=== PATIENT | male | born 1985 | race American Indian/Alaskan Native ===

== ENCOUNTER 2017-09-24 21:15 | Observation (INO) | payer SELFPAY ==
[2017-09-24] MEDS ORDERED: Sodium Chloride 0.9% 1,000 ML IV STA (21:34)
[2017-09-24] MEDS ORDERED: Iohexol 350 MG/100 ML VIAL ONE (22:11)
[2017-09-24 22:24] LABS: ALB/GLOB RATIO 1.3 (1.1-1.8); ALBUMIN 4.7 g/dL (3.0-4.8); ALT/SGPT 113 U/L (7-56); AST/SGOT 73 U/L (17-59); BLOOD UREA NITROGEN 10 mg/dL (7-21); CALCIUM 10.3 mg/dL (8.4-10.5); GFR AFRICAN-AMERICAN > 60; GFR NON-AFRICAN AMERICAN 51; LIPASE 43 U/L (23-300)
[2017-09-24 22:40] LABS: HEMOGLOBIN 16.5 g/dL (14.0-18.0); MEAN CELL VOLUME 76.5 fl (80.0-105.0); MEAN CORPUSCULAR HEMOGLOBIN 25.5 pg (25.0-35.0); MEAN CORPUSCULAR HGB CONC 33.4 g/dl (31.0-37.0); RBC 6.46 10^6/uL (3.5-6.1); RED CELL DISTRIBUTION WIDTH 15.6 % (11.5-14.5); WHITE BLOOD COUNT 10.4 10^3/ul (4.5-11.0)
[2017-09-24] MEDS ORDERED: Sodium Chloride 0.9% 1,000 ML IV SCH (22:45)
--- NOTE | 2017-09-24 22:51 | ED PDOC ---
Arrival/HPI - General Chief Complaint: GI Problem Time Seen by Provider: 09/24/17 21:24 Historian: Patient - History of Present Illness Narrative History of Present Illness (Text): 09/24/17 22:48 32 year old male, whose past medical history includes seizures as a child, who presents to the emergency department complaining multiple episodes of vomiting and diarrhea this evening. Patient notes he was at a [employer], when he began sweating and experiencing severe abdominal pain. Patient notes he then experienced uncontrollable diarrhea. Patient states he last ate a hamburger 5-6 hours prior to onset of symptoms. Patient denies any fever, chills , chest pain, shortness of breath, urinary symptoms, back pain, neck pain, headache, dizziness, or any other complaints. Time/Duration: Prior to Arrival Symptom Onset: Sudden Symptom Course: Unchanged Activities at Onset: Light Past Medical History - Provider Review Nursing Documentation Reviewed: Yes - Infectious Disease Hx of Infectious Diseases: None - Psychiatric Hx Substance Use: No - Anesthesia Hx Anesthesia: No Hx Anesthesia Reactions: No Hx Malignant Hyperthermia: No Family/Social History - Physician Review Nursing Documentation Reviewed: Yes Family/Social History: Unknown Family HX Smoking Status: Never Smoked Hx Alcohol Use: No Hx Substance Use: No Allergies/Home Meds Allergies/Adverse Reactions: Allergies No Known Allergies Allergy (Verified 09/24/17 21:26) Home Medications: Home Meds Medication Instructions Recorded Confirmed No Known Home Med 09/24/17 09/24/17 Review of Systems - Physician Review All systems were reviewed & negative as marked: Yes - Review of Systems Constitutional: Normal Eyes: Normal ENT: Normal Respiratory: Normal. absent: SOB, Cough Cardiovascular: Normal. absent: Chest Pain Gastrointestinal: Abdominal Pain, Diarrhea, Vomiting Genitourinary Male: Normal. absent: Dysuria, Frequency Musculoskeletal: Normal. absent: Back Pain, Neck Pain Skin: Normal. absent: Rash Neurological: Normal. absent: Headache, Dizziness Endocrine: Normal Hemo/Lymphatic: Normal Psychiatric: Normal Physical Exam Vital Signs Reviewed: Yes Vital Signs Temp Pulse Resp BP Pulse Ox 09/24/17 21:28 98.2 F 91 H 18 153/91 H 98 Temperature: Afebrile Blood Pressure: Normal Pulse: Regular Respiratory Rate: Normal Appearance: Positive for: Well-Appearing, Non-Toxic, Comfortable Pain Distress: None Mental Status: Positive for: Alert and Oriented X 3 - Systems Exam Head: Present: Atraumatic, Normocephalic Pupils: Present: PERRL Extroacular Muscles: Present: EOMI Conjunctiva: Present: Other (nacteric) Mouth: Present: Dry Neck: Present: Normal Range of Motion Respiratory/Chest: Present: Clear to Auscultation, Good Air Exchange. No: Respiratory Distress, Accessory Muscle Use Cardiovascular: Present: Regular Rate and Rhythm, Normal S1, S2. No: Murmurs Abdomen: Present: Tenderness (mild diffuse tenderness). No: Distention, Normal Bowel Sounds (increased bowel sounds), Peritoneal Signs, Rebound, Guarding Back: Present: Normal Inspection Upper Extremity: Present: Normal Inspection. No: Cyanosis, Edema Lower Extremity: Present: Normal Inspection. No: Edema Neurological: Present: GCS=15, CN II-XII Intact, Speech Normal Skin: Present: Warm, Dry, Normal Color. No: Rashes Psychiatric: Present: Alert, Oriented x 3, Normal Insight, Normal Concentration Medical Decision Making ED Course and Treatment: 09/24/17 22:53 Impression: 32 year old male presents to the emergency department complaining of multiple episodes of vomiting and diarrhea this evening. Plan: -- CT Abd/Pelvis -- EKG -- Pepcid -- Sodium Chloride -- Toradol -- Zofran -- Reassess and disposition Progress Notes: 09/25/17 00:05 CT abd/pelvis reviewed, shows: Lung bases: Unremarkable. No mass. No consolidation. ABDOMEN: Liver: Unremarkable. No mass. Gallbladder and bile ducts: Unremarkable. No calcified stones. No ductal dilation. Pancreas: Unremarkable. No mass. No ductal dilation. Spleen: Unremarkable. No splenomegaly. Adrenals: Unremarkable. No mass. Kidneys and ureters: Unremarkable. No solid mass. No hydronephrosis. Stomach and bowel: Mild thickening of the colon. however , distended. In appropriate clinical setting mild colitis is not excluded. PELVIS: Appendix: No findings to suggest acute appendicitis. Bladder: Unremarkable. No mass. Reproductive: Unremarkable as visualized. ABDOMEN and PELVIS: Intraperitoneal space: Unremarkable. No free air. No significant fluid collection. Bones/joints: No acute fracture. No dislocation. Soft tissues: Unremarkable. Vasculature: Unremarkable. No abdominal aortic aneurysm. Lymph nodes: Unremarkable. No enlarged lymph nodes. IMPRESSION: Mild thickening of the colon. however , distended. In appropriate clinical setting mild colitis is not excluded. 09/25/17 00:10 EKG reviewed, shows NSR at 100 bpm. Non-specific T wave changes 09/25/17 00:20 Case discussed with program medical director and Dr. More. Accepts pt to hospital service. - Lab Interpretations Lab Results: 09/24/17 22:00 09/24/17 22:00 Lab Results 09/24/17 22:00: WBC 10.4, RBC 6.46 H, Hgb 16.5, Hct 49.4, MCV 76.5 L, MCH 25.5, MCHC 33.4, RDW 15.6 H, Plt Count 327, MPV 11.0 09/24/17 22:00: Sodium 143, Potassium 4.3, Chloride 102, Carbon Dioxide 25, Anion Gap 21 H, BUN 10, Creatinine 1.6 H, Est GFR ( Amer) > 60, Est GFR ( Non-Af Amer) 51, Random Glucose 107, Calcium 10.3, Total Bilirubin 0.7, AST 73 H , ALT 113 H, Alkaline Phosphatase 47, Total Protein 8.2, Albumin 4.7, Globulin 3.5, Albumin/Globulin Ratio 1.3, Lipase 43 - RAD Interpretation Radiology Orders: 09/24/17 21:33 ABD & PELVIS IV CONTRAST ONLY [CT] Stat - Medication Orders Current Medication Orders: Sodium Chloride (Sodium Chloride 0.9%) 1,000 mls @ 150 mls/hr IV .Q6H40M YADIRA Metronidazole (Flagyl) 500 mg in 100 mls @ 100 mls/hr IVPB STAT STA PRN Reason: Protocol Stop: 09/25/17 01:12 Ceftriaxone Sodium (Rocephin 1 Gram Ivpb) 1 gm in 100 mls @ 200 mls/hr IV ONCE STA PRN Reason: Protocol Stop: 09/25/17 00:42 Discontinued Medications Famotidine (Pepcid) 20 mg IVP STAT STA Stop: 09/24/17 21:35 Last Admin: 09/24/17 22:03 Dose: 20 mg IVP Administration Document 09/24/17 22:03 CNR (Rec: 09/24/17 22:03 CNR [id number]) Charges for Administration # of IVP Administrations 1 Sodium Chloride (Sodium Chloride 0.9%) 1,000 mls @ 999 mls/hr IV .Q1H1M STA Stop: 09/24/17 22:34 Last Admin: 09/24/17 22:02 Dose: 999 mls/hr eMAR Start Stop Document 09/24/17 22:02 CNR (Rec: 09/24/17 22:02 CNR [id number]) Intravenous Solution Start Date 09/24/17 Start Time 22:02 End Date 09/24/17 End time 23:02 Total Infusion Time 60 Ketorolac Tromethamine (Toradol) 30 mg IVP ONCE ONE Stop: 09/24/17 21:35 Last Admin: 09/24/17 22:03 Dose: 30 mg MAR Pain Assessment Document 09/24/17 22:03 CNR (Rec: 09/24/17 22:03 CNR [id number]) Pain Reassessment Is this a pain reassessment? No IVP Administration Document 09/24/17 22:03 CNR (Rec: 09/24/17 22:03 CNR [id number]) Charges for Administration # of IVP Administrations 1 Ondansetron HCl (Zofran Inj) 4 mg IVP ONCE ONE Stop: 09/24/17 21:35 Last Admin: 09/24/17 22:03 Dose: 4 mg IVP Administration Document 09/24/17 22:03 CNR (Rec: 09/24/17 22:03 CNR [id number]) Charges for Administration # of IVP Administrations 1 - Scribe Statement The provider has reviewed the documentation as recorded by the Anaibdory Chiu All medical record entries made by the Drew were at my direction and personally dictated by me. I have reviewed the chart and agree that the record accurately reflects my personal performance of the history, physical exam, medical decision making, and the department course for this patient. I have also personally directed, reviewed, and agree with the discharge instructions and disposition. Disposition/Present on Arrival - Present on Arrival Any Indicators Present on Arrival: No History of DVT/PE: No History of Uncontrolled Diabetes: No Urinary Catheter: No History of Decub. Ulcer: No History Surgical Site Infection Following: None - Disposition Have Diagnosis and Disposition been Completed?: Yes Diagnosis: Colitis, Intractable nausea and vomiting, Diarrhea Disposition: HOSPITALIZED Disposition Time: 00:19 Patient Problems: Current Active Problems Problem Status Onset Colitis Acute Diarrhea Acute Intractable nausea and vomiting Acute Condition: STABLE Forms: [employer] ([place])
[2017-09-25] MEDS ORDERED: cefTRIAXone 1 gm 1 GM/100 ML BAG IV STA (00:13)
[2017-09-25] MEDS ORDERED: metroNIDAZOLE IV 500 mg/100 ml 500 MG/100 ML BAG IVPB STA (00:13)
[2017-09-25 01:10] VITALS: RESP 20
[2017-09-25] MEDS: Sodium Chloride 0.9% 1,000 ML IV SCH ×4 (01:30→17:31)
--- NOTE | 2017-09-25 01:36 | CP.PCM.HP ---
<Pankaj Samuel - Last Filed: 09/25/17 01:33> History of Present Illness - History of Present Illness History of Present Illness: Pankaj Samuel PGY 2 IM H&P Note for Dr. Cancino CC: Abdominal pain with nausea/vomiting Mr. Mitchell is a 32-year-old -[place]aysian male with a PMH of morbid obesity and seizures (last was at age 23, per patient) who presents with abdominal pain and 3 episodes of nausea/vomiting that started earlier today. The patient states that his breakfast included gottlieb, which may have been undercooked, and lunch was a burger (meat may have been old). The patient states that earlier tonight, around 8 PM, he started experiencing nausea, a feeling of abdominal "churning" and began having nonbloody vomiting and uncontrollable diarrhea. The patient does state that he noted streaks of blood the patient denies fevers/chills, chest pain, weakness, headaches, dizziness, sick contacts, or other contacts with similar symptoms. The patient denies any similar prior episodes. Of note, the patient has not followed up with the PMD in over 2 years. 12 point ROS was reviewed and is otherwise unremarkable. In ED, the patient was given 1 L NS bolus and started on 150 cc/h for maintenance. He was also given Zofran, Pepcid and Toradol, as well as Rocephin and Flagyl. EKG was done and noted NSR at 100 bpm with nonspecific T-wave changes. CT abdomen/pelvis was also done and showed mild thickening of the colon likely indicating mild colitis. PMH: As above PSH: Partial right knee repair Meds: None Allergies: None SHX: Positive social EtOH, denies tobacco or drug use F Hx: Diabetes and cancer Present on Admission - Present on Admission Any Indicators Present on Admission: No Review of Systems - Review of Systems All systems: reviewed and no additional remarkable complaints except (as per HPI ) Past Patient History - Infectious Disease Hx of Infectious Diseases: None - Past Medical History & Family History Past Medical History?: Yes Past Family History: Reviewed and not pertinent - Past Social History Smoking Status: Never Smoked Alcohol: None Drugs: Denies Home Situation {Lives}: With Family - CARDIAC Hx Cardiac Disorders: No - PULMONARY Hx Respiratory Disorders: No - NEUROLOGICAL Hx Seizures: Yes - HEENT Hx HEENT Problems: No - RENAL Hx Chronic Kidney Disease: No - ENDOCRINE/METABOLIC Hx Endocrine Disorders: No - HEMATOLOGICAL/ONCOLOGICAL Hx Blood Disorders: No - INTEGUMENTARY Hx Dermatological Problems: No - MUSCULOSKELETAL/RHEUMATOLOGICAL Hx Musculoskeletal Disorders: No - GASTROINTESTINAL Hx Gastrointestinal Disorders: No - GENITOURINARY/GYNECOLOGICAL Hx Genitourinary Disorders: No - PSYCHIATRIC Hx Psychophysiologic Disorder: No Hx Substance Use: No - SURGICAL HISTORY Hx Surgeries: Yes Hx Orthopedic Surgery: Yes (partial right knee repair) - ANESTHESIA Hx Anesthesia: No Hx Anesthesia Reactions: No Hx Malignant Hyperthermia: No Meds Allergies/Adverse Reactions: Allergies Allergy/AdvReac Type Severity Reaction Status Date / Time No Known Allergies Allergy Verified 09/24/17 21:26 Physical Exam - Constitutional Appears: Well, Non-toxic, No Acute Distress - Head Exam Head Exam: NORMAL INSPECTION - Eye Exam Eye Exam: EOMI, Normal appearance - ENT Exam ENT Exam: Mucous Membranes Moist - Neck Exam Neck exam: Positive for: Normal Inspection - Respiratory Exam Respiratory Exam: Clear to Auscultation Bilateral, NORMAL BREATHING PATTERN. absent: Rales, Rhonchi, Wheezes, Respiratory Distress - Cardiovascular Exam Cardiovascular Exam: Tachycardia, +S1, +S2. absent: Systolic Murmur - GI/Abdominal Exam GI & Abdominal Exam: Guarding, Normal Bowel Sounds, Soft, Tenderness (RUQ on deep palpation). absent: Distended, Rigid - Extremities Exam Extremities exam: Positive for: normal inspection - Back Exam Back exam: NORMAL INSPECTION - Neurological Exam Neurological exam: Alert, Oriented x3 - Psychiatric Exam Psychiatric exam: Normal Mood - Skin Skin Exam: Normal Color, Warm Results - Vital Signs Recent Vital Signs: Last Vital Signs Temp 98.6 F 09/25/17 00:33 Pulse 104 H 09/25/17 01:09 Resp 20 09/25/17 01:09 BP 138/69 09/25/17 01:09 Pulse Ox 99 09/25/17 01:09 - Labs Result Diagrams: 09/24/17 22:00 09/24/17 22:00 Assessment & Plan - Assessment and Plan (Free Text) Assessment: 32-year-old -Malaysian male with a PMH of morbid obesity and a remote history of seizures who presents with abdominal pain associated with nausea/ vomiting 1 day. Imaging significant for mild colitis, and patient is improving with current therapy. Plan: 1. Nausea/vomiting likely 2/2 colitis - Start Cipro and Flagyl for empiric therapy - NPO due to vomiting, advance diet as tolerated - NS at 175 cc/h for maintenance - Zofran as needed - Blood and stool cultures ordered - Stool electrolytes ordered - Salmonella AB ordered - Abd US ordered - Tylenol as needed fevers - We will admit for observation on MedSurg 2. COLTEN - Unknown of baseline creatinine - Monitor urine output - AM labs to check BUN/Cr 3. PPX - PTX - Ambulatory Case was reviewed and discussed with attending, Dr. Cancino <Gregor Cancino - Last Filed: 09/25/17 04:36> Results - Vital Signs Recent Vital Signs: Last Vital Signs Temp 98.9 F 09/25/17 01:33 Pulse 86 09/25/17 01:33 Resp 20 09/25/17 01:33 BP 143/71 09/25/17 01:33 Pulse Ox 99 09/25/17 01:09 - Labs Result Diagrams: 09/24/17 22:00 09/24/17 22:00 Attending/Attestation - Attestation I have personally seen and examined this patient.: Yes I have fully participated in the care of the patient.: Yes I have reviewed all pertinent clinical information: Yes Notes (Text): 09/25/17 04:34 Patient was seen when he was in 570-02. Agree with history, physical examination, assessment and plan. C/o right sided abdominal pain nausea ,vomiting diarrhoea with blood in stool. Colitis. Obesity. History of GERD History of migraine headache. [place] History knee repair. Family history breast cancer-Aunt. Family history of prostate cancer-Uncle. Family history of DM-Mother. Family history of bone cancer-Grand mother. Family history of epilepsy -Uncle.
[2017-09-25 02:06] VITALS: BMI 41.5
[2017-09-25] MEDS: metroNIDAZOLE IV 500 mg/100 ml 500 MG/100 ML BAG IVPB SCH ×3 (06:33→21:12)
[2017-09-25] MEDS: Pantoprazole 40 mg EC Tab PO SCH (06:33)
[2017-09-25 07:03] LABS: BASO # 0.03 K/mm3 (0.0-2.0); BASO % 0.3 % (0.0-3.0); EOS % 0.3 % (1.5-5.0); GRAN # 6.73 (1.4-6.5); GRAN % 74.8 % (50.0-68.0); HEMOGLOBIN 14.9 g/dL (14.0-18.0); LYMPH # 1.4 (1.2-3.4); LYMPH % 15.6 % (22.0-35.0); MEAN CELL VOLUME 76.5 fl (80.0-105.0); MEAN CORPUSCULAR HEMOGLOBIN 25.3 pg (25.0-35.0); MEAN CORPUSCULAR HGB CONC 33.1 g/dl (31.0-37.0); MEAN PLATELET VOLUME 10.4 fl (7.0-11.0); MONO # 0.8 (0.1-0.6); RBC 5.88 10^6/uL (3.5-6.1); RED CELL DISTRIBUTION WIDTH 15.7 % (11.5-14.5)
[2017-09-25 07:40] LABS: ALB/GLOB RATIO 1.3 (1.1-1.8); ALBUMIN 3.8 g/dL (3.0-4.8); ALT/SGPT 95 U/L (7-56); AST/SGOT 56 U/L (17-59); BLOOD UREA NITROGEN 12 mg/dL (7-21); CALCIUM 8.8 mg/dL (8.4-10.5); GFR AFRICAN-AMERICAN > 60; GFR NON-AFRICAN AMERICAN 51
--- NOTE | 2017-09-25 09:35 | US ---
Date of service: 09/25/2017 HISTORY: Abdominal pain w/ n/v, pain COMPARISON: CT abdomen and pelvis from 09/24/2017 TECHNIQUE: Grayscale imaging was performed. FINDINGS: LIVER: Measures 16.9 cm. Normal echogenicity of the liver parenchyma. No mass. No intrahepatic bile duct dilatation. GALLBLADDER: There are no gallstones, wall thickening or pericholecystic fluid. The sonographic Soto's sign is negative. COMMON BILE DUCT: Measures 2.7 mm. No stones. No dilatation. PANCREAS: Normal in size and echotexture. No mass. No ductal dilatation. RIGHT KIDNEY: Measures 13.1cm. Normal echogenicity. No calculus, mass, or hydronephrosis. LEFT KIDNEY: Measures 14.1cm. Normal echogenicity. No calculus, mass, or hydronephrosis. SPLEEN: Normal in size and contour. No mass. AORTA: No aneurysmal dilatation. IVC: Unremarkable. OTHER FINDINGS: None. IMPRESSION: No cholelithiasis or biliary dilatation. Mild hepatomegaly.
[2017-09-25] MEDS ORDERED: Ciprofloxacin 400mg/200ml D5W 400 MG/200 ML BAG IVPB SCH ×2 (10:00→22:00)
--- NOTE | 2017-09-25 12:02 | CT ---
Date of service: 09/24/2017 PROCEDURE: CT Abdomen and Pelvis with contrast HISTORY: abdominal pain COMPARISON: None. TECHNIQUE: CT scan of the abdomen and pelvis was performed after administration of intravenous contrast. Oral contrast was not administered. Coronal and sagittal reformatted images were obtained. Contrast dose: 100 ml omnipaque 350 Radiation dose: Total exam DLP = 1446.72 MGy-cm. This CT exam was performed using one or more of the following dose reduction techniques: Automated exposure control, adjustment of the mA and/or kV according to patient size, and/or use of iterative reconstruction technique. FINDINGS: LOWER THORAX: The lung bases are clear. LIVER: Normal in size an appearance. No gross lesion or ductal dilatation. GALLBLADDER AND BILE DUCTS: The gallbladder is contracted. PANCREAS: Normal in size and appearance. No gross lesion or ductal dilatation. SPLEEN: Normal in size and appearance. ADRENALS: No discrete nodule. KIDNEYS AND URETERS: Normal in size and appearance. No hydronephrosis. No solid mass. VASCULATURE: No aortic aneurysm. BOWEL: Evaluation of the bowel is limited in the absence of oral contrast. The small bowel loops are normal in caliber. The colon is decompressed. APPENDIX: Normal appendix. PERITONEUM: No free fluid. No free air. LYMPH NODES: No enlarged lymph nodes. BLADDER: Grossly normal in appearance. REPRODUCTIVE: The prostate gland is normal in sinus. BONES: No acute fracture. Within normal limits for the patient's age. OTHER FINDINGS: None. IMPRESSION: No acute abdominal or pelvic abnormality. A preliminary report was provided by [employer].
--- NOTE | 2017-09-25 12:15 | CARD ---
APPROVED REPORT Date of service: 09/24/2017 EKG Measurement Heart [id number] <Conclusion> Normal sinus rhythm Nonspecific T wave abnormality Abnormal ECG
--- NOTE | 2017-09-25 14:30 | CP.PCM.CON ---
<Samantha Stallings - Last Filed: 09/25/17 14:18> History of Present Illness - History of Present Illness History of Present Illness: GI Fellow PGY 5 Consult Note This is a 32-year-old -[place] male with a PMH of morbid obesity and seizures 10yrs ago who presents with abdominal pain with nausea/vomiting that started last night. The patient states that his breakfast included gottlieb, which may have been undercooked, and lunch was a burger meat may have been old. The patient states that he started experiencing nausea, a feeling of abdominal "churning" and began having nonbloody vomiting and uncontrollable diarrhea. The patient notes rectal bleeding. He denies fevers/chills, chest pain, weakness, headaches, dizziness, sick contacts, or other contacts with similar symptoms. The patient denies any similar prior episodes. No prior colonoscopy/egd. In ED, the patient was given Rocephin and Flagyl. CT abdomen/pelvis was also done and showed mild thickening of the colon likely indicating mild colitis. ROS: A 12pt ROS was negative except as above PMH: As above PSH: Partial right knee repair SHX: Positive social EtOH, denies tobacco or drug use FHx: Neg for colon cancer Past Patient History - Infectious Disease Hx of Infectious Diseases: None - Past Medical History & Family History Past Medical History?: Yes Past Family History: Reviewed and not pertinent - Past Social History Smoking Status: Never Smoked Alcohol: None Drugs: Denies Home Situation {Lives}: With Family - CARDIAC Hx Cardiac Disorders: No - PULMONARY Hx Respiratory Disorders: No - NEUROLOGICAL Hx Seizures: Yes - HEENT Hx HEENT Problems: No - RENAL Hx Chronic Kidney Disease: No - ENDOCRINE/METABOLIC Hx Endocrine Disorders: No - HEMATOLOGICAL/ONCOLOGICAL Hx Blood Disorders: No - INTEGUMENTARY Hx Dermatological Problems: No - MUSCULOSKELETAL/RHEUMATOLOGICAL Hx Musculoskeletal Disorders: No - GASTROINTESTINAL Hx Gastrointestinal Disorders: No - GENITOURINARY/GYNECOLOGICAL Hx Genitourinary Disorders: No - PSYCHIATRIC Hx Psychophysiologic Disorder: No Hx Substance Use: No - SURGICAL HISTORY Hx Surgeries: Yes Hx Orthopedic Surgery: Yes (partial right knee repair) - ANESTHESIA Hx Anesthesia: No Hx Anesthesia Reactions: No Hx Malignant Hyperthermia: No Meds Allergies/Adverse Reactions: Allergies Allergy/AdvReac Type Severity Reaction Status Date / Time No Known Allergies Allergy Verified 07/20/18 21:26 - Medications Medications: Current Medications Acetaminophen (Tylenol 325mg Tab) 650 mg PO Q4 PRN PRN Reason: Fever >100.4 F Metronidazole (Flagyl) 500 mg in 100 mls @ 100 mls/hr IVPB Q8 [facility] PRN Reason: Protocol Last Admin: 09/25/17 13:01 Dose: 100 mls/hr Sodium Chloride (Sodium Chloride 0.9%) 1,000 mls @ 175 mls/hr IV .Q5H43M [facility] Last Admin: 09/25/17 06:37 Dose: 175 mls/hr Ondansetron HCl (Zofran Inj) 4 mg IVP Q4H PRN PRN Reason: Nausea/Vomiting Pantoprazole Sodium (Protonix Ec Tab) 40 mg PO 0600 [facility] Last Admin: 09/25/17 06:33 Dose: 40 mg Physical Exam - Constitutional Appears: Non-toxic, No Acute Distress - Head Exam Head Exam: ATRAUMATIC, NORMAL INSPECTION, NORMOCEPHALIC - Eye Exam Eye Exam: EOMI, Normal appearance, PERRL Pupil Exam: PERRL - ENT Exam ENT Exam: Mucous Membranes Moist - Neck Exam Neck exam: Positive for: Normal Inspection - Respiratory Exam Respiratory Exam: Clear to Auscultation Bilateral, NORMAL BREATHING PATTERN - Cardiovascular Exam Cardiovascular Exam: REGULAR RHYTHM, RRR - GI/Abdominal Exam GI & Abdominal Exam: Normal Bowel Sounds, Soft. absent: Distended, Guarding, Organomegaly, Tenderness - Rectal Exam Rectal Exam: Bloody Stool - Extremities Exam Extremities exam: Positive for: full ROM, normal inspection - Back Exam Back exam: FULL ROM, NORMAL INSPECTION - Neurological Exam Neurological exam: Alert, Oriented x3 - Psychiatric Exam Psychiatric exam: Normal Affect, Normal Mood - Skin Skin Exam: Dry, Intact, Normal Color, Warm Results - Vital Signs Recent Vital Signs: Last Vital Signs Temp 98 F 09/25/17 08:22 Pulse 97 H 09/25/17 08:22 Resp 20 09/25/17 08:22 BP 124/78 09/25/17 08:22 Pulse Ox 100 09/25/17 08:22 - Labs Result Diagrams: 09/25/17 06:30 09/25/17 06:30 Labs: Laboratory Results - last 24 hr 09/25/17 09/25/17 09/25/17 03:00 06:30 06:30 WBC 9.0 RBC 5.88 Hgb 14.9 Hct 45.0 MCV 76.5 L MCH 25.3 MCHC 33.1 RDW 15.7 H Plt Count 269 MPV 10.4 Gran % 74.8 H Lymph % (Auto) 15.6 L [place] % (Auto) 9.0 H Eos % (Auto) 0.3 L Baso % (Auto) 0.3 Gran # 6.73 H Lymph # (Auto) 1.4 [place] # (Auto) 0.8 H Eos # (Auto) 0.0 Baso # (Auto) 0.03 Sodium 142 Potassium 4.3 Chloride 105 Carbon Dioxide 25 Anion Gap 16 BUN 12 Creatinine 1.6 H Est GFR ( Amer) > 60 Est GFR (Non-Af Amer) 51 Random Glucose 101 Calcium 8.8 Phosphorus 4.6 H Magnesium 1.9 Total Bilirubin 0.8 AST 56 ALT 95 H Alkaline Phosphatase 32 L D Total Protein 6.7 Albumin 3.8 Globulin 2.9 Albumin/Globulin Ratio 1.3 Stool Occult Blood Positive H Assessment & Plan - Assessment and Plan (Free Text) Assessment: This is a 32yM presenting with abdominal pain, nausea and vomiting after eating undercooked meat. 1. Rectal bleeding 2. Diarrhea 3. Abdominal pain, N/V Plan: -Continue supportive care -Pt with rectal bleeding on exam and diarrhea -Recommend stool studies to r/o infectious etiology -CT scan with possible colitis -Continue IV abx -IVF -Advance to regular diet -Monitor H/H -Pt may need a colonoscopy if continued rectal bleeding and diarrhea -Will follow pt closely <Radha Carter - Last Filed: 09/26/17 07:40> Meds - Medications Medications: Current Medications Acetaminophen (Tylenol 325mg Tab) 650 mg PO Q4 PRN PRN Reason: Fever >100.4 F Metronidazole (Flagyl) 500 mg in 100 mls @ 100 mls/hr IVPB Q8 [facility] PRN Reason: Protocol Last Admin: 09/26/17 06:59 Dose: 100 mls/hr Sodium Chloride (Sodium Chloride 0.9%) 1,000 mls @ 175 mls/hr IV .Q5H43M [facility] Last Admin: 09/25/17 17:31 Dose: 175 mls/hr Ceftriaxone Sodium (Rocephin 1 Gram Ivpb) 1 gm in 100 mls @ 100 mls/hr IVPB DAILY [facility] PRN Reason: Protocol Lactobacillus Acidophilus (Bacid Acidophilus) 1 cap PO BID [facility] Last Admin: 09/25/17 17:32 Dose: 1 cap Ondansetron HCl (Zofran Inj) 4 mg IVP Q4H PRN PRN Reason: Nausea/Vomiting Pantoprazole Sodium (Protonix Ec Tab) 40 mg PO 0600 [facility] Last Admin: 09/26/17 06:59 Dose: 40 mg Results - Vital Signs Recent Vital Signs: Last Vital Signs Temp 98.6 F 09/25/17 15:04 Pulse 94 H 09/25/17 15:04 Resp 20 09/25/17 15:04 BP 147/76 09/25/17 15:04 Pulse Ox 98 09/25/17 15:04 - Labs Result Diagrams: 09/25/17 06:30 09/25/17 06:30 Labs: Laboratory Results - last 24 hr 09/25/17 06:30 Sodium 142 Potassium 4.3 Chloride 105 Carbon Dioxide 25 Anion Gap 16 BUN 12 Creatinine 1.6 H Est GFR ( Amer) > 60 Est GFR (Non-Af Amer) 51 Random Glucose 101 Calcium 8.8 Phosphorus 4.6 H Magnesium 1.9 Total Bilirubin 0.8 AST 56 ALT 95 H Alkaline Phosphatase 32 L D Total Protein 6.7 Albumin 3.8 Globulin 2.9 Albumin/Globulin Ratio 1.3 Attending/Attestation - Attestation I have personally seen and examined this patient.: Yes I have fully participated in the care of the patient.: Yes I have reviewed all pertinent clinical information: Yes Notes (Text): 09/26/17 07:37 This is a 32yM presenting with abdominal pain, nausea and vomiting after eating undercooked meat with rectal exam with mucosa and bleeding. Continue antibiotics and supportive care. Diet as tolerated. Stool infectious work up.
[2017-09-25] MEDS: Lactobacillus Acidophilus 500 MU Cap PO SCH (17:32)
[2017-09-26] MEDS: Pantoprazole 40 mg EC Tab PO SCH (06:59)
[2017-09-26] MEDS: metroNIDAZOLE IV 500 mg/100 ml 500 MG/100 ML BAG IVPB SCH (06:59)
[2017-09-26 07:38] LABS: BASO # 0.06 K/mm3 (0.0-2.0); BASO % 1.4 % (0.0-3.0); EOS # 0.1 (0.0-0.7); EOS % 2.1 % (1.5-5.0); GRAN # 2.29 (1.4-6.5); GRAN % 52.3 % (50.0-68.0); HEMOGLOBIN 15.3 g/dL (14.0-18.0); LYMPH # 1.5 (1.2-3.4); LYMPH % 33.2 % (22.0-35.0); MEAN CELL VOLUME 76.9 fl (80.0-105.0); MEAN CORPUSCULAR HEMOGLOBIN 25.8 pg (25.0-35.0); MEAN CORPUSCULAR HGB CONC 33.5 g/dl (31.0-37.0); MEAN PLATELET VOLUME 10.8 fl (7.0-11.0); MONO # 0.5 (0.1-0.6); RBC 5.94 10^6/uL (3.5-6.1); RED CELL DISTRIBUTION WIDTH 15.7 % (11.5-14.5); WHITE BLOOD COUNT 4.4 10^3/ul (4.5-11.0)
[2017-09-26 08:16] LABS: ALB/GLOB RATIO 1.3 (1.1-1.8); ALBUMIN 3.9 g/dL (3.0-4.8); ALT/SGPT 80 U/L (7-56); AST/SGOT 59 U/L (17-59); BLOOD UREA NITROGEN 9 mg/dL (7-21); CALCIUM 9.1 mg/dL (8.4-10.5); GFR AFRICAN-AMERICAN > 60; GFR NON-AFRICAN AMERICAN 55
[2017-09-26 08:27] VITALS: BP 148/95; PULSE 84; TEMP 97.4; O2SAT 94
--- NOTE | 2017-09-26 09:37 | CP.PCM.PN ---
<Samantha Stallings - Last Filed: 09/26/17 09:33> Subjective - Date & Time of Evaluation Date of Evaluation: 09/26/17 Time of Evaluation: 09:00 - Subjective Subjective: GI Fellow PGY5 Progress Note Pt seen and evaluated at bedside, pt doing well with no complaints of any abdominal pain, N/V. Reports rectal bleeding has resolved and wants to go home. ROS: A 12pt ROS was negative except as above. Objective - Vital Signs/Intake and Output Vital Signs (last 24 hours): Temp Pulse Resp BP Pulse Ox 97.4 F L 84 20 148/95 H 94 L 09/26/17 06:00 09/26/17 06:00 09/26/17 06:00 09/26/17 06:00 09/26/17 06:00 Intake and Output: 09/26/17 09/26/17 06:59 18:59 Intake Total 1080 Balance 1080 - Medications Medications: Current Medications Acetaminophen (Tylenol 325mg Tab) 650 mg PO Q4 PRN PRN Reason: Fever >100.4 F Metronidazole (Flagyl) 500 mg in 100 mls @ 100 mls/hr IVPB Q8 [facility] PRN Reason: Protocol Last Admin: 09/26/17 06:59 Dose: 100 mls/hr Sodium Chloride (Sodium Chloride 0.9%) 1,000 mls @ 175 mls/hr IV .Q5H43M [facility] Last Admin: 09/25/17 17:31 Dose: 175 mls/hr Ceftriaxone Sodium (Rocephin 1 Gram Ivpb) 1 gm in 100 mls @ 100 mls/hr IVPB DAILY [facility] PRN Reason: Protocol Lactobacillus Acidophilus (Bacid Acidophilus) 1 cap PO BID [facility] Last Admin: 09/25/17 17:32 Dose: 1 cap Ondansetron HCl (Zofran Inj) 4 mg IVP Q4H PRN PRN Reason: Nausea/Vomiting Pantoprazole Sodium (Protonix Ec Tab) 40 mg PO 0600 [facility] Last Admin: 09/26/17 06:59 Dose: 40 mg - Labs Labs: 09/26/17 07:00 09/26/17 07:00 - Constitutional Appears: Non-toxic, No Acute Distress - Head Exam Head Exam: ATRAUMATIC, NORMAL INSPECTION, NORMOCEPHALIC - Eye Exam Eye Exam: EOMI, Normal appearance, PERRL Pupil Exam: PERRL - ENT Exam ENT Exam: Mucous Membranes Moist - Neck Exam Neck Exam: Full ROM, Normal Inspection - Respiratory Exam Respiratory Exam: Clear to Ausculation Bilateral, NORMAL BREATHING PATTERN - Cardiovascular Exam Cardiovascular Exam: REGULAR RHYTHM, RRR, +S1, +S2 - GI/Abdominal Exam GI & Abdominal Exam: Soft, Normal Bowel Sounds. absent: Tenderness - Extremities Exam Extremities Exam: Full ROM, Normal Inspection - Back Exam Back Exam: NORMAL INSPECTION - Neurological Exam Neurological Exam: Alert, Awake, Oriented x3 - Psychiatric Exam Psychiatric exam: Normal Affect, Normal Mood Assessment and Plan - Assessment and Plan (Free Text) Assessment: This is a 32yM presenting with abdominal pain, nausea and vomiting after eating undercooked meat. 1. Rectal bleeding-resolved 2. Diarrhea 3. Abdominal pain, N/V Plan: -Continue supportive care -Pt with rectal bleeding on initial exam and diarrhea which has now resolved -Follow up on stool studies to r/o infectious etiology, pending -CT scan with possible colitis -Continue abx for total 7 days -Continue regular diet -Monitor H/H -Pt may need a colonoscopy as an outpt if continued rectal bleeding and diarrhea <Radha Carter - Last Filed: 09/26/17 11:27> Objective - Vital Signs/Intake and Output Vital Signs (last 24 hours): Temp Pulse Resp BP Pulse Ox 97.4 F L 84 20 148/95 H 94 L 09/26/17 06:00 09/26/17 06:00 09/26/17 06:00 09/26/17 06:00 09/26/17 06:00 Intake and Output: 09/26/17 09/26/17 06:59 18:59 Intake Total 1080 Balance 1080 - Medications Medications: Current Medications Acetaminophen (Tylenol 325mg Tab) 650 mg PO Q4 PRN PRN Reason: Fever >100.4 F Metronidazole (Flagyl) 500 mg in 100 mls @ 100 mls/hr IVPB Q8 [facility] PRN Reason: Protocol Last Admin: 09/26/17 06:59 Dose: 100 mls/hr Sodium Chloride (Sodium Chloride 0.9%) 1,000 mls @ 175 mls/hr IV .Q5H43M [facility] Last Admin: 09/25/17 17:31 Dose: 175 mls/hr Ceftriaxone Sodium (Rocephin 1 Gram Ivpb) 1 gm in 100 mls @ 100 mls/hr IVPB DAILY [facility] PRN Reason: Protocol Last Admin: 09/26/17 10:37 Dose: Not Given Lactobacillus Acidophilus (Bacid Acidophilus) 1 cap PO BID [facility] Last Admin: 09/26/17 10:37 Dose: Not Given Ondansetron HCl (Zofran Inj) 4 mg IVP Q4H PRN PRN Reason: Nausea/Vomiting Pantoprazole Sodium (Protonix Ec Tab) 40 mg PO 0600 [facility] Last Admin: 09/26/17 06:59 Dose: 40 mg - Labs Labs: 09/26/17 07:00 09/26/17 07:00 Attending/Attestation - Attestation I have personally seen and examined this patient.: Yes I have fully participated in the care of the patient.: Yes I have reviewed all pertinent clinical information, including history, physical exam and plan: Yes Notes (Text): 09/26/17 11:26 This is a 32yM presenting with abdominal pain, nausea and vomiting after eating undercooked meat with rectal exam with mucosa and bleeding. Continue antibiotics and supportive care. Diet as tolerated. Stool infectious work up.
[2017-09-26] MEDS ORDERED: cefTRIAXone 1 gm 1 GM/100 ML BAG IVPB SCH (10:00)
[2017-09-26] MEDS: Lactobacillus Acidophilus 500 MU Cap PO SCH (10:37)
--- NOTE | 2017-09-26 15:55 | CON ---
DATE: 09/26/2017 LOCATION: The patient is in bed, seen in 570. CHIEF COMPLAINT: Abdominal pain and bloody diarrhea x1-2 days' duration. HISTORY OF PRESENT ILLNESS: This is a 32-year-old with morbid obesity with BMI of 41, seizures, who was admitted with GI symptoms, abdominal pain and bright red blood per rectum associated with nausea. He denies any fevers, any chills. No chest pain, shortness of breath or cough. No dysuria or frequency. PAST MEDICAL HISTORY: Significant for morbid obesity, BMI of 41; seizures. PAST SURGICAL HISTORY: Significant for partial right knee repair. ALLERGIES: THE PATIENT HAS NO KNOWN ALLERGIES. MEDICATIONS: He takes no medications at home. SOCIAL HISTORY: He lives with his family. No one else is ill. He has no travel outside of the [place]. He was [place] in . He has no exposure to any animals. PHYSICAL EXAMINATION: VITAL SIGNS: Temperature is 98, blood pressure is 138/60, respiratory rate of 20, heart rate of 101. HEENT: Examination of HEENT is unremarkable. NECK: Supple. LUNGS: Have decreased breath sounds. HEART: Normal S1, S2. ABDOMEN: Soft, nontender. LABORATORY DATA: Laboratory examination reveals a white count of 10, hemoglobin of 16, platelets of 327. The patient has 74% granulocytosis. Chemistries reveals a BUN of 10, creatinine is 1.6. LFTs are elevated. The lipase is normal. Stool for occult blood is positive. Microbiology reveals the blood cultures are negative. The patient's CAT scan of the abdomen is negative. ASSESSMENT AND PLAN: A 32-year-old morbidly obese male with a body mass index of 41 with normal platelets, normal mental status, not anemic, his hemoglobin is 16. Presenting with gastroenteritis and colitis with acute kidney injury, gout, hemolytic uremic syndrome, although Shiga toxin producing Escherichia coli is a possibility in this patient. We will order stool cultures. Thus far, the blood cultures are negative. Should have an human immunodeficiency virus test. Stool for Shiga toxin and stool cultures, Norovirus, adenovirus, hepatitis profile. Empirically, we will start the patient on ceftriaxone and Flagyl and pending initial workup and results and GI workup. We will follow closely with you. Jj Cuevas MD [facility] # [id number]
[2017-09-27 08:43] LABS: HEPATITIS B SURFACE AG Negative (NEGATIVE)
[2017-09-27 08:49] LABS: HEPATITIS A IGM NEGATIVE (NEGATIVE); HEPATITIS B CORE AB NEGATIVE (NEGATIVE)
[2017-09-27 09:00] LABS: HEPATITIS C ANTIBODY NEGATIVE (NEGATIVE)
--- NOTE | 2017-09-29 14:19 | CP.PCM.DIS ---
Provider - Provider Date of Admission: 09/25/17 00:16 Attending physician: Fior Stanton MD Primary care physician: No PCP Consults: Gastroenterology: Dr. Croft Infectious Disease: Dr. Red Time Spent in preparation of Discharge (in minutes): 45 Diagnosis - Discharge Diagnosis (1) Colitis Status: Acute Priority: Medium (2) Diarrhea Status: Acute Priority: Medium (3) Intractable nausea and vomiting Status: Resolved Priority: Medium Hospital Course - Lab Results Lab Results: Micro Results 09/25/17 00:20 Blood Blood Culture - Preliminary NO GROWTH AFTER 4 DAYS 09/26/17 01:00 Stool Stool Culture - Final NO SALMONELLA, SHIGELLA OR CAMPYLOBACTER ISOLATED. 09/25/17 03:00 Stool Stool Culture - Final NO SALMONELLA, SHIGELLA OR CAMPYLOBACTER ISOLATED. Most Recent Lab Values WBC 4.4 10^3/ul (4.5-11.0) L D 09/26/17 07:00 RBC 5.94 10^6/uL (3.5-6.1) 09/26/17 07:00 Hgb 15.3 g/dL (14.0-18.0) 09/26/17 07:00 Hct 45.7 % (42.0-52.0) 09/26/17 07:00 MCV 76.9 fl (80.0-105.0) L 09/26/17 07:00 MCH 25.8 pg (25.0-35.0) 09/26/17 07:00 MCHC 33.5 g/dl (31.0-37.0) 09/26/17 07:00 RDW 15.7 % (11.5-14.5) H 09/26/17 07:00 Plt Count 256 10^3/uL (120.0-450.0) 09/26/17 07:00 MPV 10.8 fl (7.0-11.0) 09/26/17 07:00 Gran % 52.3 % (50.0-68.0) 09/26/17 07:00 Lymph % (Auto) 33.2 % (22.0-35.0) 09/26/17 07:00 [place] % (Auto) 11.0 % (1.0-6.0) H 09/26/17 07:00 Eos % (Auto) 2.1 % (1.5-5.0) 09/26/17 07:00 Baso % (Auto) 1.4 % (0.0-3.0) 09/26/17 07:00 Gran # 2.29 (1.4-6.5) 09/26/17 07:00 Lymph # (Auto) 1.5 (1.2-3.4) 09/26/17 07:00 [place] # (Auto) 0.5 (0.1-0.6) 09/26/17 07:00 Eos # (Auto) 0.1 (0.0-0.7) 09/26/17 07:00 Baso # (Auto) 0.06 K/mm3 (0.0-2.0) 09/26/17 07:00 Sodium 142 mmol/L (132-148) 09/26/17 07:00 Potassium 4.4 mmol/L (3.6-5.0) 09/26/17 07:00 Chloride 105 mmol/L (98-107) 09/26/17 07:00 Carbon Dioxide 27 mmol/L (21-33) 09/26/17 07:00 Anion Gap 15 (10-20) 09/26/17 07:00 BUN 9 mg/dL (7-21) 09/26/17 07:00 Creatinine 1.5 mg/dl (0.8-1.5) 09/26/17 07:00 Est GFR ( Amer) > 60 09/26/17 07:00 Est GFR (Non-Af Amer) 55 09/26/17 07:00 Random Glucose 86 mg/dL (70-110) 09/26/17 07:00 Calcium 9.1 mg/dL (8.4-10.5) 09/26/17 07:00 Phosphorus 4.6 mg/dL (2.5-4.5) H 09/25/17 06:30 Magnesium 1.9 mg/dL (1.7-2.2) 09/25/17 06:30 Total Bilirubin 0.7 mg/dL (0.2-1.3) 09/26/17 07:00 AST 59 U/L (17-59) 09/26/17 07:00 ALT 80 U/L (7-56) H 09/26/17 07:00 Alkaline Phosphatase 34 U/L (38-126) L 09/26/17 07:00 Total Protein 6.8 g/dL (5.8-8.3) 09/26/17 07:00 Albumin 3.9 g/dL (3.0-4.8) 09/26/17 07:00 Globulin 2.9 gm/dL 09/26/17 07:00 Albumin/Globulin Ratio 1.3 (1.1-1.8) 09/26/17 07:00 Lipase 43 U/L (23-300) 09/24/17 22:00 Stool Occult Blood Positive (NEGATIVE) H 09/25/17 03:00 Stool Rotavirus Antigen Negative (NEGATIVE) 09/26/17 01:00 Hepatitis A IgM Ab Negative (NEGATIVE) 09/26/17 07:00 Hep Bs Antigen Negative (NEGATIVE) 09/26/17 07:00 Hep B Core IgM Ab Negative (NEGATIVE) 09/26/17 07:00 Hepatitis C Antibody Negative (NEGATIVE) 09/26/17 07:00 HIV 1&2 Ag/Ab, 4th Gen Nonreactive (Nonreactive) 09/26/17 07:00 - Hospital Course Hospital Course: Aden Uriarte PGY1 - Discharge Summary Hospital Course 32-year-old male with past medical history of childhood seizures and morbid obesity presented to [facility] Emergency Department on the night of 09/24/17 with abdominal pain, vomiting, diarrhea, and rectal bleed after eating uncooked meat. EKG was performed and was unremarkable. Imaging revealed mild thickening of the colon likely indicating mild colitis, per CT abdomen and pelvis report. The patient was then started on empiric antibiotic therapy with Rocephin and Flagyl. Patient was placed as NPO due to vomiting, and the was given IV fluids. To quell the patient's nausea, zofran was administered. The patient also received toradol for moderate pain and pepcid as prophylaxis. Blood and stool cultures were ordered. Salmonella AB ordered, and were negative. Furthermore, bloodwork was also obtained, and CMP revealed acute kidney injury. BUN and Creatinine were monitored closely. Patient was subsequently admitted for observation on [facility]. The following day, the patient continued on IV antibiotics and continued to receive supportive care. Patient's diet was advanced to regular diet. Patient received an abdominal ultrasound, which revealed no cholelithiasis or biliary dilatation, but it did report mild hepatomegaly. Stool occult blood test was obtained and was found to be positive. Gastroenterology was consulted and recommended colonoscopy if the patient's symptoms would persist, and to continue with supportive therapy, per report. On 09/26/17, the acute kidney injury resolved, and the patient's symptoms have also resolved. Patient denied continued diarrhea and/or rectal bleeding. Infectious disease was consulted and recommended stool for shiga toxin, stool cultures, norovirus, adenovirus, and hepatitis profile, and to start patient on ceftriaxone and flagyl empirically, pending GI workup results, per report. However, at that time, the patient refused to await for more results, and requested to leave the hospital, which was at the time, against medical advise ( AMA). The patient was informed, in detail, the risks and possible sequelae for not following medical advise, however proceeded to be discharged AMA. Discharge Medications None Patient was seen and evaluated with Attending Physician Dr. Noe Beauchamp - Date & Time of H&P Date of H&P: 09/25/17 Time of H&P: 01:33 Discharge Exam - Head Exam Head Exam: ATRAUMATIC, NORMAL INSPECTION, NORMOCEPHALIC - Additional Findings Additional findings: Physical Exam not obtained because the patient left against medical advise. Discharge Plan - Follow Up Plan Condition: GUARDED Disposition: AGAINST MEDICAL ADVICE Instructions: Rotavirus Infection (DC), Rotavirus Infection (GEN), Nutrition Tips for Relief of Diarrhea (DC), Nutrition Tips for Relief of Diarrhea (GEN) Clinical Quality Measures - Date & Time of Discharge Summary Date of Discharge Summary: 09/26/17 Time of Discharge Summary: 10:20
== END 2017-09-26 12:53 | disposition home or self-care (01) ==
LOC: ED 21:15 → ERH 09-25 00:16 → 5RSO 09-25 01:26
PROVIDERS: ADMIT Internal Medicine; ATTEND Internal Medicine
DX: K52.9 Noninfective gastroenteritis and colitis, unspecified (principal); N17.9 Acute kidney failure, unspecified; K21.9 Gastro-esophageal reflux disease without esophagitis; G43.909 Migraine, unspecified, not intractable, without status migrainosus; M10.9 Gout, unspecified; E66.01 Morbid (severe) obesity due to excess calories; Z68.41 Body mass index [BMI] 40.0-44.9, adult; Z83.3 Family history of diabetes mellitus; Z80.9 Family history of malignant neoplasm, unspecified
CPT/HCPCS: 36415; 74177; 76700; 80053; 80074; 82438; 83690; 83735; 84100; 84302; 84311; 85025; 85027; 86768; 87040; 87045; 87389; 87425; 87427; 87449; 93005; 96361; 96365; 96366; 96367; 96375; 96376; 99285; G0328; G0378; J0696; J0744; J1885; J2405; J7030; Q9967